=== PATIENT | male | born 1950 | race Caucasian/White ===

== ENCOUNTER 2017-01-20 07:59 | Emergency (ER) | payer OTHER ==
[~2017-01-20] VITALS: Ht 172.7 cm; Wt 95.9 kg
[2017-01-20] MEDS ORDERED: LASIX20 MG PO (08:39)
[2017-01-20] MEDS ORDERED: XANAX0.5 MG PO (08:39)
[2017-01-20 08:48] VITALS: BP 150/85
== END 2017-01-20 09:12 | disposition home or self-care (01) ==
LOC: EME 07:59
DX: F41.9 Anxiety disorder, unspecified (principal); I10 Essential (primary) hypertension; F32.9 Major depressive disorder, single episode, unspecified; F17.200 Nicotine dependence, unspecified, uncomplicated
CPT/HCPCS: 99281; 99284

== ENCOUNTER 2017-08-05 14:03 | Inpatient (IN) | payer OTHER ==
[~2017-08-05] VITALS: Ht 182.9 cm; Wt 97.1 kg
[~2017-08-05 14:03] MED LIST: LASIX20 MG PO; XANAX0.5 MG PO
[2017-08-05 16:57] LABS: HEMATOCRIT 37.1 % (38.0-50.0); MCH 22.9 PG (29.0-34.0); MCHC 30.7 G/DL (30.0-36.0); MCV 74.5 FL (86-99); MEAN PLAT.VOLUME 8.7 uM^3 (9.0-12.4); PLATELET COUNT 234 K/uL (156-360); RBC DIS.WIDTH-CV 17.8 % (11.8-14.6); RBC DIS.WIDTH-SD 47.8 % (39-53); RED BLOOD COUNT 4.98 M/uL (4.00-5.50); WHITE BLOOD COUNT 10.2 K/uL (4.1-10.2)
[2017-08-05 17:01] LABS: CHLORIDE 105 mEq/L (99-109); POTASSIUM 4.2 mEq/L (3.7-5.4); SODIUM 138 mEq/L (136-147)
[2017-08-05 17:03] LABS: GLUCOSE 93 mg/dL (70-99)
[2017-08-05 17:04] LABS: ANION GAP 6 MEQ/L (2-14)
[2017-08-05 17:07] LABS: GFR ESTIMATE (CALCULATED) > 59 mL/min/
[2017-08-05 17:08] LABS: UREA NITROGEN (BUN) 9 mg/dL (9-23)
[2017-08-05 17:13] LABS: TROP-I INTERPRETATION NEGATIVE; TROPONIN-I 0.01 ng/mL (0.0-0.30)
[2017-08-05] MEDS ORDERED: PANTOPRAZOLE SO40 MG PO (19:04)
[2017-08-05] MEDS ORDERED: ZOLOFT100 MG PO (19:05)
[2017-08-05] MEDS ORDERED: DEPAKOTE ER250 MG PO (19:06)
[2017-08-05] MEDS ORDERED: FLONASE16 G1 BOTH NARES (19:07)
[2017-08-05] MEDS ORDERED: FOLIC ACID1 MG PO (19:08)
[2017-08-05] MEDS ORDERED: IRON325 M1 PO (19:10)
[2017-08-05] MEDS ORDERED: BAYER CHEWABLE81 MG PO (19:11)
[2017-08-05] MEDS ORDERED: ADVIL,NUPRIN,M200 MG PO (19:12)
[2017-08-05] MEDS ORDERED: TRIAMTERENE-HC1 EAC1 PO (19:13)
[2017-08-05] MEDS ORDERED: POTASSIUM CHLO20 ME2 PO (19:15)
[2017-08-05] MEDS ORDERED: PERPHEN-AMITRI1 EACH PO (19:15)
[2017-08-05] MEDS ORDERED: METOPROLOL TART25 MG PO (19:17)
[2017-08-05 22:42] VITALS: BP 125/78
[2017-08-05 23:24] LABS: TROP-I INTERPRETATION NEGATIVE; TROPONIN-I 0.02 ng/mL (0.0-0.30)
[2017-08-06 02:59] LABS: ADD MIUA? NO; BILIRUBIN NEGATIVE; BLOOD NEGATIVE; COLOR YELLOW ((YELLOW)); GLUCOSE (STRIP) NEGATIVE; KETONES NEGATIVE; LEUKOCYTES NEGATIVE; NITRITE NEGATIVE; PROTEIN (STRIP) NEGATIVE; SPECIFIC GRAVITY 1.009 (1.000-1.030)
[2017-08-06 03:20] VITALS: BP 144/80
[2017-08-06 07:08] LABS: HEMATOCRIT 36.7 % (38.0-50.0); MCH 23.3 PG (29.0-34.0); MCHC 30.8 G/DL (30.0-36.0); MCV 75.7 FL (86-99); MEAN PLAT.VOLUME 9.5 uM^3 (9.0-12.4); PLATELET COUNT 207 K/uL (156-360); RBC DIS.WIDTH-CV 18.2 % (11.8-14.6); RBC DIS.WIDTH-SD 49.1 % (39-53); RED BLOOD COUNT 4.85 M/uL (4.00-5.50); WHITE BLOOD COUNT 10.2 K/uL (4.1-10.2)
[2017-08-06 07:30] LABS: TROP-I INTERPRETATION NEGATIVE; TROPONIN-I 0.01 ng/mL (0.0-0.30)
[2017-08-06 07:37] LABS: ANION GAP 7 MEQ/L (2-14); CHLORIDE 104 MEQ/L (99-109); POTASSIUM 4.1 MEQ/L (3.7-5.4); SAMPLE HEMOLYSIS CHECK 0; SAMPLE ICTERIC CHECK 0; SAMPLE LIPEMIA CHECK 0; SODIUM 139 MEQ/L (136-147)
[2017-08-06 07:42] LABS: GFR ESTIMATE (CALCULATED) > 59 mL/min/; GLUCOSE 91 mg/dL (70-99); UREA NITROGEN (BUN) 11 mg/dL (9-23)
[2017-08-06 08:43] VITALS: BP 134/87
[2017-08-06 12:14] VITALS: BP 126/79
[2017-08-06 19:34] VITALS: BP 120/72
[2017-08-06 23:27] VITALS: BP 103/62
[2017-08-07 04:46] VITALS: BP 119/73
[2017-08-07 07:43] VITALS: BP 126/77
[2017-08-07 08:49] LABS: INTERNAL CONTROL VALID? YES
[2017-08-07 11:33] LABS: C DIFF TOXIN NEGATIVE (NEGATIVE)
[2017-08-07 11:34] LABS: PROBE CHECK PASS; SPECIMEN PROCESSING CONTROL PASS
[2017-08-07 12:16] VITALS: BP 126/71
[2017-08-07] MEDS ORDERED: LASIX20 MG PO (12:36)
[2017-08-07] MEDS ORDERED: ENTRESTO 24 MG1 EACH PO (12:36)
[2017-08-07] MEDS ORDERED: POTASSIUM CHLO20 ME2 PO (13:01)
[2017-08-07] MEDS ORDERED: ZOLOFT100 MG PO (13:01)
[2017-08-07] MEDS ORDERED: XANAX0.5 MG PO (13:01)
[2017-08-07] MEDS ORDERED: BAYER CHEWABLE81 MG PO (13:01)
[2017-08-07] MEDS ORDERED: FOLIC ACID1 MG PO (13:01)
[2017-08-07] MEDS ORDERED: FLONASE16 G1 BOTH NARES (13:01)
[2017-08-07] MEDS ORDERED: IRON325 M1 PO (13:01)
[2017-08-07] MEDS ORDERED: TRIAMTERENE-HC1 EAC1 PO (13:01)
[2017-08-07] MEDS ORDERED: METOPROLOL TART25 MG PO (13:01)
[2017-08-07] MEDS ORDERED: DEPAKOTE ER250 MG PO (13:01)
[2017-08-07] MEDS ORDERED: PANTOPRAZOLE SO40 MG PO (13:01)
== END 2017-08-07 16:23 | disposition home or self-care (01) | DRG 291 ==
LOC: EME 14:03 → EDOF 20:01 → 3EAST 20:01 → ENRESERV 20:08 → 3EAST 22:21
PROVIDERS: Hospitalist; Nurse Practitioner Family
DX: I50.23 Acute on chronic systolic (congestive) heart failure (principal); J18.9 Pneumonia, unspecified organism; I11.0 Hypertensive heart disease with heart failure; R09.02 Hypoxemia; F17.200 Nicotine dependence, unspecified, uncomplicated; F32.9 Major depressive disorder, single episode, unspecified; F41.9 Anxiety disorder, unspecified; K59.00 Constipation, unspecified; Z98.84 Bariatric surgery status; Z68.28 Body mass index [BMI] 28.0-28.9, adult; Z79.899 Other long term (current) drug therapy
CPT/HCPCS: 71010; 71020; 80048; 81003; 83880; 84484; 85027; 87449; 87493; 90686; 90832; 93306; 94640; 94799; 99202; 99281; 99285; J0456; J0696; J1650; J1940; J2405; J7050; Q0175

== ENCOUNTER 2017-08-25 23:40 | Inpatient (IN) | payer OTHER ==
[~2017-08-25] VITALS: Ht 175.3 cm; Wt 92.4 kg
[~2017-08-25 23:40] MED LIST changes: +ADVIL,NUPRIN,M200 MG PO; +BAYER CHEWABLE81 MG PO; +DEPAKOTE ER250 MG PO; +ENTRESTO 24 MG1 EACH PO; +FLONASE16 G1 BOTH NARES; +FOLIC ACID1 MG PO; +IRON325 M1 PO; +METOPROLOL TART25 MG PO; +PANTOPRAZOLE SO40 MG PO; +PERPHEN-AMITRI1 EACH PO; +POTASSIUM CHLO20 ME2 PO; +TRIAMTERENE-HC1 EAC1 PO; +ZOLOFT100 MG PO
[2017-08-26 00:24] LABS: MCH 23.6 PG (29.0-34.0); MCHC 31.9 G/DL (30.0-36.0); MEAN PLAT.VOLUME 8.5 uM^3 (9.0-12.4); PLATELET COUNT 275 K/uL (156-360); RBC DIS.WIDTH-SD 47.4 % (39-53); WHITE BLOOD COUNT 9.5 K/uL (4.1-10.2)
[2017-08-26 00:38] LABS: CHLORIDE 105 mEq/L (99-109); POTASSIUM 3.8 mEq/L (3.7-5.4); SODIUM 137 mEq/L (136-147)
[2017-08-26 00:40] LABS: GLUCOSE 108 mg/dL (70-99)
[2017-08-26 00:41] LABS: ANION GAP 10 MEQ/L (2-14)
[2017-08-26 00:42] LABS: TOTAL BILIRUBIN 0.6 mg/dL (0.0-1.0)
[2017-08-26 00:43] LABS: ALKALINE PHOSPHATASE 111 IU/L (3-129); SERUM ETHYL ALCOHOL < 10 mg/dL
[2017-08-26 00:44] LABS: GFR ESTIMATE (CALCULATED) > 59 mL/min/
[2017-08-26 00:45] LABS: UREA NITROGEN (BUN) 11 mg/dL (9-23)
[2017-08-26 01:30] LABS: ADD MIUA? NO; BILIRUBIN NEGATIVE; BLOOD NEGATIVE; COLOR YELLOW ((YELLOW)); GLUCOSE (STRIP) NEGATIVE; KETONES NEGATIVE; LEUKOCYTES NEGATIVE; NITRITE NEGATIVE; PROTEIN (STRIP) 30; SPECIFIC GRAVITY 1.012 (1.000-1.030); UCUL ADDED? NO; UROBILINOGEN 0.2 MG/DL (0.2-1.0)
[2017-08-26 01:38] LABS: ADD MEDTOX COMMENT Y; AMPHETAMINE NEGATIVE (500 ng/mL); BARBITURATES NEGATIVE (200 ng/mL); BENZODIAZEPINES PRESUMPTIVE POSITIVE (150 ng/mL); COCAINE NEGATIVE (150 ng/mL); INTERNAL CONTROLS VALID? YES; METHADONE NEGATIVE (200 ng/mL); METHAMPHETAMINE NEGATIVE (500 ng/mL); OPIATES (MORPHINE) NEGATIVE (100 ng/mL); OXYCODONE NEGATIVE (100 ng/mL); PHENCYCLIDINE NEGATIVE (25 ng/mL); PROPOXYPHENE NEGATIVE (300 ng/mL); THC CANNABINOIDS NEGATIVE (50 ng/mL); TRICYCLIC ANTIDEPRESSANTS NEGATIVE (300 ng/mL)
[2017-08-26 04:22] LABS: BENZODIAZEPINES, URINE SCREEN POSITIVE (200 ng/mL)
[2017-08-26 07:38] VITALS: BP 137/66
[2017-08-26 09:48] VITALS: BP 128/81
[2017-08-26 15:22] VITALS: BP 104/58
[2017-08-27 07:38] VITALS: BP 130/65
[2017-08-27 15:28] VITALS: BP 124/71
[2017-08-28 07:54] VITALS: BP 143/85
[2017-08-28 15:33] VITALS: BP 142/89
[2017-08-29 07:24] VITALS: BP 101/56
[2017-08-29 08:00] VITALS: BP 128/69
[2017-08-29 15:02] VITALS: BP 123/53
[2017-08-30 07:48] VITALS: BP 129/72
[2017-08-30 15:36] VITALS: BP 109/65
[2017-08-31 07:32] VITALS: BP 130/68
[2017-08-31 15:53] VITALS: BP 120/59
[2017-09-01 07:52] VITALS: BP 93/50
[2017-09-01 11:15] VITALS: BP 119/64
[2017-09-01 15:26] VITALS: BP 109/65
[2017-09-02 08:01] VITALS: BP 124/67
[2017-09-02] MEDS ORDERED: FOLIC ACID1 MG PO (08:40)
[2017-09-02] MEDS ORDERED: LASIX20 MG PO (08:40)
[2017-09-02] MEDS ORDERED: POTASSIUM CHLO20 ME2 PO (08:40)
[2017-09-02] MEDS ORDERED: PANTOPRAZOLE SO40 MG PO (08:40)
[2017-09-02] MEDS ORDERED: XANAX0.5 MG PO (08:40)
[2017-09-02] MEDS ORDERED: METOPROLOL TART25 MG PO (08:40)
[2017-09-02] MEDS ORDERED: TRIAMTERENE-HC1 EAC1 PO (08:40)
[2017-09-02] MEDS ORDERED: BAYER CHEWABLE81 MG PO (08:40)
[2017-09-02] MEDS ORDERED: ZOLOFT100 MG PO (08:40)
[2017-09-02] MEDS ORDERED: TRAZODONE HCL50 MG PO (08:43)
== END 2017-09-02 14:39 | disposition home or self-care (01) | DRG 885 ==
LOC: EME 23:40 → EDOF 08-26 02:33 → 1WEST 08-26 02:33 → ENRESERV 08-26 04:07 → 1WEST 08-26 05:39
PROVIDERS: Emergency Medicine
DX: F33.2 Major depressive disorder, recurrent severe without psychotic features (principal); F41.9 Anxiety disorder, unspecified; I11.0 Hypertensive heart disease with heart failure; I50.9 Heart failure, unspecified; E11.9 Type 2 diabetes mellitus without complications; K21.9 Gastro-esophageal reflux disease without esophagitis; R45.850 Homicidal ideations; R45.851 Suicidal ideations; F17.200 Nicotine dependence, unspecified, uncomplicated; Z59.0 Homelessness; Z91.14 Patient's other noncompliance with medication regimen; Z79.82 Long term (current) use of aspirin
CPT/HCPCS: 80053; 81003; 84999; 85027; 90839; 97150 GO; 97165 GO; 99281; 99285; G0480

== ENCOUNTER 2017-09-24 07:55 | Emergency (ER) | payer OTHER ==
[~2017-09-24] VITALS: Ht 177.8 cm; Wt 98.2 kg
[~2017-09-24 07:55] MED LIST changes: +TRAZODONE HCL50 MG PO
[2017-09-24 08:48] LABS: BASOPHIL (%) 0.3 % (0-1); EOSINOPHIL COUNT 0.3 K/uL (0-0.3); HEMATOCRIT 38.2 % (38.0-50.0); HEMOGLOBIN 11.9 G/DL (12.5-16.6); IMMATURE GRANULOCYTE (%) 0.4 % (0.0-0.7); LYMPHOCYTE (%) 8.2 % (15-42); MCH 23.4 PG (29.0-34.0); MCHC 31.2 G/DL (30.0-36.0); MCV 75.2 FL (86-99); MONOCYTE (%) 8.2 % (3-12); NEUTROPHIL (%) 80.9 % (45-76); NEUTROPHIL COUNT 10.3 K/uL (1.8-6.4); PLATELET COUNT 221 K/uL (156-360); RBC DIS.WIDTH-SD 45.6 % (39-53); RED BLOOD COUNT 5.08 M/uL (4.00-5.50); WHITE BLOOD COUNT 12.7 K/uL (4.1-10.2)
[2017-09-24 08:55] LABS: APPEARANCE SL.HAZY ((CLEAR)); BILIRUBIN NEGATIVE; BLOOD NEGATIVE; COLOR YELLOW ((YELLOW)); GLUCOSE (STRIP) NEGATIVE; KETONES NEGATIVE; LEUKOCYTES SMALL; NITRITE NEGATIVE; PROTEIN (STRIP) 30; SPECIFIC GRAVITY 1.027 (1.000-1.030); UROBILINOGEN 0.2 MG/DL (0.2-1.0)
[2017-09-24 09:04] LABS: BACTERIA RARE /HPF; EPITHELIAL CELLS RARE /HPF; HYALINE CASTS TNTC /LPF; MUCUS 2+ /LPF; RED BLOOD CELLS 0-5 /HPF (0-5); UCUL ADDED? YES; WHITE BLOOD CELLS 20-30 /HPF (0-5)
[2017-09-24 09:04] LABS: ALBUMIN 3.8 g/dL (3.2-4.8)
[2017-09-24 09:05] LABS: CHLORIDE 103 mEq/L (99-109); POTASSIUM 4.5 mEq/L (3.7-5.4); SODIUM 136 mEq/L (136-147)
[2017-09-24 09:06] LABS: AMPHETAMINE NEGATIVE (500 ng/mL); BARBITURATES NEGATIVE (200 ng/mL); BENZODIAZEPINES NEGATIVE (150 ng/mL); BUPRENORPHINE PRESUMPTIVE POSITIVE (10 ng/mL); COCAINE NEGATIVE (150 ng/mL); METHADONE NEGATIVE (200 ng/mL); METHAMPHETAMINE NEGATIVE (500 ng/mL); OPIATES (MORPHINE) NEGATIVE (100 ng/mL); OXYCODONE NEGATIVE (100 ng/mL); PHENCYCLIDINE NEGATIVE (25 ng/mL); PROPOXYPHENE NEGATIVE (300 ng/mL); THC CANNABINOIDS NEGATIVE (50 ng/mL); TRICYCLIC ANTIDEPRESSANTS NEGATIVE (300 ng/mL)
[2017-09-24 09:07] LABS: GLUCOSE 92 mg/dL (70-99); TOTAL PROTEIN 6.9 g/dL (6.4-8.3)
[2017-09-24 09:09] LABS: TOTAL BILIRUBIN 0.4 mg/dL (0.0-1.0)
[2017-09-24 09:10] LABS: ALKALINE PHOSPHATASE 128 IU/L (3-129); TROP-I INTERPRETATION NEGATIVE; TROPONIN-I 0.01 ng/mL (0.0-0.30)
[2017-09-24 09:11] LABS: CREATININE 0.7 mg/dL (0.6-1.3); GFR ESTIMATE (CALCULATED) > 59 mL/min/ (58.99-99999)
[2017-09-24 09:12] LABS: AST (GOT) 34 IU/L (2-34); UREA NITROGEN (BUN) 18 mg/dL (9-23)
[2017-09-24 09:13] LABS: ALT (GPT) 25 IU/L (3-49)
[2017-09-24] MEDS ORDERED: ATARAX,VISTARIL25 MG PO (10:56)
[2017-09-24] MEDS ORDERED: XANAX0.5 MG PO (10:56)
[2017-09-24] MEDS ORDERED: MEDROL DOSEPAK4 MG PO (10:56)
[2017-09-24] MEDS ORDERED: BACTRIM,SEPT1 TABLET PO (11:08)
[2017-09-24 11:23] LABS: TROP-I INTERPRETATION NEGATIVE; TROPONIN-I < 0.01 ng/mL (0.0-0.30)
[2017-09-24 12:00] VITALS: BP 145/77
== END 2017-09-24 12:04 | disposition home or self-care (01) ==
LOC: EME → EDBD 07:55 → EME 07:55
PROVIDERS: Physician Assistant
DX: L50.9 Urticaria, unspecified (principal); Z76.0 Encounter for issue of repeat prescription; F41.9 Anxiety disorder, unspecified; N39.0 Urinary tract infection, site not specified; R91.8 Other nonspecific abnormal finding of lung field; I10 Essential (primary) hypertension; Z72.0 Tobacco use
CPT/HCPCS: 71046; 80053; 81003; 83880; 84484; 85025; 87086; 90839; 93005; 99281; 99285; J2060; J2930; Q0177

== ENCOUNTER 2017-09-27 20:40 | Inpatient (IN) | payer OTHER ==
[~2017-09-27] VITALS: Ht 177.8 cm; Wt 90.4 kg
[~2017-09-27 20:40] MED LIST changes: +ATARAX,VISTARIL25 MG PO; +BACTRIM,SEPT1 TABLET PO; +MEDROL DOSEPAK4 MG PO
[2017-09-27 21:07] LABS: HEMATOCRIT 27.4 % (38.0-50.0); HEMOGLOBIN 8.8 G/DL (12.5-16.6); MCH 24.2 PG (29.0-34.0); MCHC 32.1 G/DL (30.0-36.0); MCV 75.5 FL (86-99); PLATELET COUNT 278 K/uL (156-360); RBC DIS.WIDTH-CV 17.8 % (11.8-14.6); RBC DIS.WIDTH-SD 46.7 % (39-53); RED BLOOD COUNT 3.63 M/uL (4.00-5.50); WHITE BLOOD COUNT 16.2 K/uL (4.1-10.2)
[2017-09-27 21:11] LABS: CHLORIDE 102 mEq/L (99-109); POTASSIUM 4.8 mEq/L (3.7-5.4); SODIUM 134 mEq/L (136-147)
[2017-09-27 21:13] LABS: GLUCOSE 150 mg/dL (70-99)
[2017-09-27 21:16] LABS: TOTAL BILIRUBIN 0.6 mg/dL (0.0-1.0)
[2017-09-27 21:17] LABS: ALKALINE PHOSPHATASE 78 IU/L (3-129); CREATININE 0.7 mg/dL (0.6-1.3); GFR ESTIMATE (CALCULATED) > 59 mL/min/ (58.99-99999)
[2017-09-27 21:18] LABS: UREA NITROGEN (BUN) 24 mg/dL (9-23)
[2017-09-27 21:20] LABS: ALT (GPT) 83 IU/L (3-49); AST (GOT) 123 IU/L (2-34); LIPASE 5 U/L (1.0-51.0)
[2017-09-27] MEDS ORDERED: XANAX0.5 MG PO (21:50)
[2017-09-27] MEDS ORDERED: PROTONIX40 MG PO (21:51)
[2017-09-27 23:39] LABS: HEMATOCRIT 23.7 % (38.0-50.0); HEMOGLOBIN 7.6 G/DL (12.5-16.6); MCHC 32.1 G/DL (30.0-36.0); MCV 74.8 FL (86-99); PLATELET COUNT 298 K/uL (156-360); RBC DIS.WIDTH-CV 17.3 % (11.8-14.6); RBC DIS.WIDTH-SD 46.2 % (39-53); RED BLOOD COUNT 3.17 M/uL (4.00-5.50); WHITE BLOOD COUNT 15.5 K/uL (4.1-10.2)
[2017-09-27 23:44] VITALS: BP 111/65
[2017-09-28] VITALS (10 sets, daily range): BP systolic 105–126; BP diastolic 55–77
[2017-09-28 02:23] LABS: APPEARANCE CLEAR ((CLEAR)); BILIRUBIN NEGATIVE; BLOOD NEGATIVE; COLOR YELLOW ((YELLOW)); GLUCOSE (STRIP) NEGATIVE; KETONES 80; LEUKOCYTES NEGATIVE; NITRITE NEGATIVE; PROTEIN (STRIP) NEGATIVE; UCUL ADDED? NO; UROBILINOGEN 0.2 MG/DL (0.2-1.0)
[2017-09-28 02:46] LABS: SPECIFIC GRAVITY 1.074 (1.000-1.030)
[2017-09-28 08:14] LABS: HEMATOCRIT 24.8 % (38.0-50.0); HEMOGLOBIN 8.3 G/DL (12.5-16.6); MCV 74.9 FL (86-99)
[2017-09-28 10:36] LABS: HEMATOCRIT 24.8 % (38.0-50.0); HEMOGLOBIN 8.4 G/DL (12.5-16.6); MCV 74.9 FL (86-99)
[2017-09-28 10:43] LABS: INTER. NORMALIZED RATIO 1.2
[2017-09-28 18:36] LABS: HEMATOCRIT 24.4 % (38.0-50.0); HEMOGLOBIN 8.1 G/DL (12.5-16.6)
[2017-09-28 20:17] LABS: HEMATOCRIT 23.4 % (38.0-50.0); HEMOGLOBIN 7.6 G/DL (12.5-16.6); MCV 76.5 FL (86-99)
[2017-09-29] VITALS (12 sets, daily range): BP systolic 109–143; BP diastolic 59–70
[2017-09-29 06:37] LABS: ALBUMIN 2.9 G/DL (3.2-4.8); ALKALINE PHOSPHATASE 65 IU/L (3-129); ALT (GPT) 51 IU/L (3-49); AST (GOT) 50 IU/L (2-34); CHLORIDE 108 MEQ/L (99-109); CREATININE 0.6 MG/DL (0.6-1.3); GFR ESTIMATE (CALCULATED) > 59 mL/min/ (58.99-99999); SODIUM 138 MEQ/L (136-147); TOTAL BILIRUBIN 0.6 MG/DL (0.0-1.0); TOTAL PROTEIN 4.9 G/DL (6.4-8.3); UREA NITROGEN (BUN) 13 mg/dL (9-23)
[2017-09-29 06:39] LABS: GLUCOSE 95 mg/dL (70-99)
[2017-09-29 07:07] LABS: BASOPHIL (%) 0.3 % (0-1); EOSINOPHIL (%) 2.9 % (0-5); EOSINOPHIL COUNT 0.3 K/uL (0-0.3); HEMATOCRIT 23.5 % (38.0-50.0); HEMOGLOBIN 7.6 G/DL (12.5-16.6); IMMATURE GRANULOCYTE (%) 0.4 % (0.0-0.7); LYMPHOCYTE (%) 17.5 % (15-42); LYMPHOCYTE COUNT 1.7 K/uL (1.0-2.8); MCH 24.8 PG (29.0-34.0); MCHC 32.3 G/DL (30.0-36.0); MCV 76.8 FL (86-99); MONOCYTE (%) 8.9 % (3-12); MONOCYTE COUNT 0.9 K/uL (0-0.8); NEUTROPHIL COUNT 6.7 K/uL (1.8-6.4); PLATELET COUNT 215 K/uL (156-360); RBC DIS.WIDTH-CV 17.3 % (11.8-14.6); RBC DIS.WIDTH-SD 45.4 % (39-53); RED BLOOD COUNT 3.06 M/uL (4.00-5.50); WHITE BLOOD COUNT 9.5 K/uL (4.1-10.2)
[2017-09-29 18:23] LABS: HEMATOCRIT 27.7 % (38.0-50.0); HEMOGLOBIN 9.2 G/DL (12.5-16.6); MCV 78.7 FL (86-99)
[2017-09-30 03:45] VITALS: BP 106/52
[2017-09-30 05:56] LABS: BASOPHIL (%) 0.3 % (0-1); EOSINOPHIL (%) 3.6 % (0-5); EOSINOPHIL COUNT 0.4 K/uL (0-0.3); HEMATOCRIT 27.8 % (38.0-50.0); HEMOGLOBIN 9.1 G/DL (12.5-16.6); IMMATURE GRANULOCYTE (%) 0.4 % (0.0-0.7); LYMPHOCYTE (%) 17.8 % (15-42); LYMPHOCYTE COUNT 1.7 K/uL (1.0-2.8); MCH 26.1 PG (29.0-34.0); MCHC 32.7 G/DL (30.0-36.0); MCV 79.7 FL (86-99); NEUTROPHIL (%) 67.9 % (45-76); NEUTROPHIL COUNT 6.6 K/uL (1.8-6.4); PLATELET COUNT 183 K/uL (156-360); RBC DIS.WIDTH-CV 17.9 % (11.8-14.6); RBC DIS.WIDTH-SD 49.6 % (39-53); RED BLOOD COUNT 3.49 M/uL (4.00-5.50); WHITE BLOOD COUNT 9.7 K/uL (4.1-10.2)
[2017-09-30 06:29] LABS: ALBUMIN 2.8 G/DL (3.2-4.8); ALKALINE PHOSPHATASE 64 IU/L (3-129); ALT (GPT) 44 IU/L (3-49); AST (GOT) 42 IU/L (2-34); CHLORIDE 108 MEQ/L (99-109); CREATININE 0.6 MG/DL (0.6-1.3); GFR ESTIMATE (CALCULATED) > 59 mL/min/ (58.99-99999); GLUCOSE 115 mg/dL (70-99); POTASSIUM 3.9 MEQ/L (3.7-5.4); SODIUM 139 MEQ/L (136-147); TOTAL BILIRUBIN 0.6 MG/DL (0.0-1.0); TOTAL PROTEIN 4.9 G/DL (6.4-8.3); UREA NITROGEN (BUN) 10 mg/dL (9-23)
[2017-09-30 08:00] VITALS: BP 129/66
[2017-09-30 12:00] VITALS: BP 140/69
[2017-09-30 17:14] VITALS: BP 125/70
[2017-09-30 18:14] LABS: HEMATOCRIT 29.3 % (38.0-50.0); HEMOGLOBIN 9.6 G/DL (12.5-16.6); MCV 79.4 FL (86-99)
[2017-09-30 20:00] VITALS: BP 135/68
[2017-09-30 20:51] LABS: HEMATOCRIT 28.8 % (38.0-50.0); HEMOGLOBIN 9.4 G/DL (12.5-16.6)
[2017-09-30 23:32] VITALS: BP 133/72
[2017-10-01 05:47] VITALS: BP 120/70
[2017-10-01 06:32] LABS: ALKALINE PHOSPHATASE 74 IU/L (3-129); ALT (GPT) 41 IU/L (3-49); AST (GOT) 29 IU/L (2-34); CHLORIDE 106 MEQ/L (99-109); CREATININE 0.6 MG/DL (0.6-1.3); GFR ESTIMATE (CALCULATED) > 59 mL/min/ (58.99-99999); GLUCOSE 135 mg/dL (70-99); POTASSIUM 3.9 MEQ/L (3.7-5.4); SODIUM 139 MEQ/L (136-147); TOTAL BILIRUBIN 0.5 MG/DL (0.0-1.0); UREA NITROGEN (BUN) 10 mg/dL (9-23)
[2017-10-01 07:30] VITALS: BP 121/59
[2017-10-01 07:59] LABS: BASOPHIL (%) 0.2 % (0-1); EOSINOPHIL (%) 3.2 % (0-5); EOSINOPHIL COUNT 0.4 K/uL (0-0.3); HEMATOCRIT 29.6 % (38.0-50.0); HEMOGLOBIN 9.7 G/DL (12.5-16.6); IMMATURE GRANULOCYTE (%) 0.4 % (0.0-0.7); LYMPHOCYTE (%) 14.2 % (15-42); LYMPHOCYTE COUNT 1.7 K/uL (1.0-2.8); MCH 26.4 PG (29.0-34.0); MCHC 32.8 G/DL (30.0-36.0); MCV 80.4 FL (86-99); MONOCYTE COUNT 0.9 K/uL (0-0.8); NEUTROPHIL COUNT 8.7 K/uL (1.8-6.4); RBC DIS.WIDTH-CV 18.2 % (11.8-14.6); RBC DIS.WIDTH-SD 51.5 % (39-53); RED BLOOD COUNT 3.68 M/uL (4.00-5.50); WHITE BLOOD COUNT 11.7 K/uL (4.1-10.2)
[2017-10-01 08:29] LABS: PLATELET COUNT 243 K/uL (156-360)
[2017-10-01 10:03] LABS: HEMATOCRIT 29.3 % (38.0-50.0); HEMOGLOBIN 9.6 G/DL (12.5-16.6); MCV 80.9 FL (86-99)
[2017-10-01] MEDS ORDERED: PANTOPRAZOLE SO40 MG PO (15:28)
== END 2017-10-01 16:45 | disposition home or self-care (01) | DRG 378 ==
LOC: EME → EDBD 20:40 → EME 20:40 → EDOF 09-28 02:12 → 4EAST 09-28 02:12 → ENRESERV 09-28 02:14 → 4EAST 09-28 17:01 → ENRESERV 09-30 08:14 → CANRESERV 09-30 08:14 → ENPENDDIS 10-01 → 4EAST 10-01 16:45
PROVIDERS: Hospitalist; Internal Medicine Gastroenterology; Physician Assistant
PROC: 0DJ08ZZ Inspection of Upper Intestinal Tract, Via Natural or Artificial Opening Endoscopic (ICD-10-PCS; principal; 2017-09-28)
PROC: 30233N1 Transfusion of Nonautologous Red Blood Cells into Peripheral Vein, Percutaneous Approach (ICD-10-PCS; 2017-09-28)
DX: K92.2 Gastrointestinal hemorrhage, unspecified (principal); D64.9 Anemia, unspecified; I11.0 Hypertensive heart disease with heart failure; I50.22 Chronic systolic (congestive) heart failure; F33.1 Major depressive disorder, recurrent, moderate; Z98.84 Bariatric surgery status; K75.9 Inflammatory liver disease, unspecified; K80.20 Calculus of gallbladder without cholecystitis without obstruction; K82.8 Other specified diseases of gallbladder; N28.1 Cyst of kidney, acquired; K92.0 Hematemesis; I95.9 Hypotension, unspecified; F41.8 Other specified anxiety disorders; D72.829 Elevated white blood cell count, unspecified; I72.2 Aneurysm of renal artery; R74.0 Nonspecific elevation of levels of transaminase and lactic acid dehydrogenase [LDH]; F41.9 Anxiety disorder, unspecified; K21.9 Gastro-esophageal reflux disease without esophagitis; F13.239 Sedative, hypnotic or anxiolytic dependence with withdrawal, unspecified; E11.9 Type 2 diabetes mellitus without complications; K59.00 Constipation, unspecified; R45.850 Homicidal ideations; R45.851 Suicidal ideations; Z53.20 Procedure and treatment not carried out because of patient's decision for unspecified reasons; Z79.899 Other long term (current) drug therapy; Z87.11 Personal history of peptic ulcer disease
CPT/HCPCS: 71045; 74177; 76705; 80053; 81003; 82948; 83605; 83690; 85014; 85018; 85025; 85027; 85610; 86850; 86900; 86901; 86920; 87493; 87506; 93005; 99281; 99285; C9113; J1200; J2060; J2250; J7030; J7050; P9016

== ENCOUNTER 2017-10-18 22:27 | Emergency (ER) | payer OTHER ==
[~2017-10-18] VITALS: Ht 175.3 cm; Wt 92.3 kg
[~2017-10-18 22:27] MED LIST changes: +PROTONIX40 MG PO
[2017-10-18 22:56] LABS: HEMATOCRIT 32.6 % (38.0-50.0); HEMOGLOBIN 10.3 G/DL (12.5-16.6); MCHC 31.6 G/DL (30.0-36.0); MCV 79.1 FL (86-99); PLATELET COUNT 315 K/uL (156-360); RBC DIS.WIDTH-CV 16.7 % (11.8-14.6); RBC DIS.WIDTH-SD 48.2 % (39-53); RED BLOOD COUNT 4.12 M/uL (4.00-5.50); WHITE BLOOD COUNT 8.8 K/uL (4.1-10.2)
[2017-10-18 23:04] LABS: ALBUMIN 3.8 g/dL (3.2-4.8); CHLORIDE 102 mEq/L (99-109); POTASSIUM 4.1 mEq/L (3.7-5.4); SODIUM 138 mEq/L (136-147)
[2017-10-18 23:07] LABS: GLUCOSE 126 mg/dL (70-99); TOTAL PROTEIN 6.3 g/dL (6.4-8.3)
[2017-10-18 23:09] LABS: TOTAL BILIRUBIN 0.3 mg/dL (0.0-1.0)
[2017-10-18 23:10] LABS: ALKALINE PHOSPHATASE 144 IU/L (3-129); CREATININE 0.6 mg/dL (0.6-1.3); GFR ESTIMATE (CALCULATED) > 59 mL/min/ (58.99-99999)
[2017-10-18 23:11] LABS: UREA NITROGEN (BUN) 12 mg/dL (9-23)
[2017-10-18 23:12] LABS: AST (GOT) 22 IU/L (2-34)
[2017-10-18 23:13] LABS: ALT (GPT) 18 IU/L (3-49)
[2017-10-19] MEDS ORDERED: XANAX0.5 MG PO (00:34)
[2017-10-19 00:59] VITALS: BP 140/86
== END 2017-10-19 01:00 | disposition home or self-care (01) ==
LOC: EME 22:27
DX: F13.239 Sedative, hypnotic or anxiolytic dependence with withdrawal, unspecified (principal); E86.0 Dehydration; F32.9 Major depressive disorder, single episode, unspecified; I11.0 Hypertensive heart disease with heart failure; I50.9 Heart failure, unspecified; K21.9 Gastro-esophageal reflux disease without esophagitis; J44.9 Chronic obstructive pulmonary disease, unspecified; E11.9 Type 2 diabetes mellitus without complications; F41.9 Anxiety disorder, unspecified; Z87.891 Personal history of nicotine dependence
CPT/HCPCS: 80053; 81003; 85027; 93005; 99281; 99284